=== PATIENT | male | born 1950 | race Caucasian/White ===

== ENCOUNTER → 2017-02-10 | Outpatient (CLI) | payer OTHER ==
[~2017-02-10] VITALS: Ht 182.9 cm; Wt 129.0 kg
[~2017-02-10] MED LIST: ASPI-232 PO; ASPI81TA28 PO; CEFAZOLIN 3000 MG/65 ML D5W IV SCH; CLC100 PO; CLON1TAB21 PO; CLOP1TAB15 PO; CLOP1TAB54 PO; CYM/30 PO; ERGO1CAP35 PO; ERGO500011 PO; ERGO500037 PO; FENO145T26 PO; GABA-113 PO; INSDGI INJ; INSHNI INJ; INSHRIE INJ; INSUINJ8 SC; LACTATED RINGER'S 1000ML 1,000 ML IV SCH; LISI10TA PO; LPR25 PO; LSN5 PO; MAGN400T6 PO; METF-384 PO; METO100T16 PO; MULT-188 PO; NVLGIPEN SC; NVLNI SQ; OMEG10007 PO; POLY335025 PO; POTA20TA16 PO; ROSU20TA PO; RXC5 PO; TAMS0.4C38 PO
[2017-02-10 08:30] VITALS: BMI 38.0
[2017-02-10 09:02] VITALS: BMI 38.0
--- NOTE | 2017-02-10 09:09 | PAT Medication Instructions ---
Service Date Feb 10, 2017. Current Home Medication List Aspirin (Aspir-81), 1 TAB PO QAM Clonazepam (Clonazepam Odt), 1 MG PO HS Clopidogrel (Plavix), 75 MG PO QAM Ergocalciferol (Vitamin D 17529 Unit), 50,000 UNIT PO WK Fenofibrate (Tricor), 145 MG PO QPM Fish Oil ([place]-3), 1 CAP PO BID Gabapentin (Neurontin), 600 MG PO TID Insulin Glargine (Lantus), 55 UNITS INJ AM/PM/HS Insulin Human NPH (Humulin N), 25 UNITS INJ HS Insulin Human Regular (Humulin R), 55 UNITS INJ TIDM Lisinopril (Lisinopril), 5 MG PO QPM Lisinopril (Prinivil), 10 MG PO QAM Magnesium Oxide (Mag-Ox), 400 MG PO QAM Metoprolol & Hydrochlorothiazi (Metoprolol/Hydrochlorothi), 1 TAB PO QAM Multiple Vitamins W/ Minerals (Ocuvite), 1 MG PO QAM Potassium Ext Rel (Klor-Con), 20 MEQ PO BID Rosuvastatin Calcium (Crestor), 20 MG PO QPM Tamsulosin Hcl (Flomax), 0.4 MG PO QAM Medication Instructions For Your Scheduled Surgery - Cpntinue as directed: Ergocalciferol (Vitamin D 24422 Unit), 50,000 UNIT PO WK - Instructions to be given by Cardiology: Clopidogrel (Plavix), 75 MG PO QAM - Hold the following medications 2 weeks prior to surgery: Fish Oil ([place]-3), 1 CAP PO BID - Hold the following medications the morning of surgery: Lisinopril (Prinivil), 10 MG PO QAM Magnesium Oxide (Mag-Ox), 400 MG PO QAM Multiple Vitamins W/ Minerals (Ocuvite), 1 MG PO QAM Potassium Ext Rel (Klor-Con), 20 MEQ PO BID Insulin Human Regular (Humulin R), 55 UNITS INJ TIDM - Take the following medications the morning of surgery with a sip of water OTHERWISE NOTHING TO EAT OR DRINK AFTER MIDNIGHT: Aspirin (Aspir-81), 1 TAB PO QAM Gabapentin (Neurontin), 600 MG PO TID Metoprolol & Hydrochlorothiazi (Metoprolol/Hydrochlorothi), 1 TAB PO QAM Tamsulosin Hcl (Flomax), 0.4 MG PO QAM - Test blood sugar A.M. of surgery. - If Blood Sugar is GREATER THAN 150, take HALF of your regular dose of: Insulin Glargine (Lantus) - If Blood Sugar is LESS THAN 150, DO NOT TAKE ANY: Insulin Glargine ( Lantus) - Take the following medications as scheduled the evening before surgery: Clonazepam (Clonazepam Odt), 1 MG PO HS Gabapentin (Neurontin), 600 MG PO TID Insulin Human NPH (Humulin N), 25 UNITS INJ HS Rosuvastatin Calcium (Crestor), 20 MG PO QPM Potassium Ext Rel (Klor-Con), 20 MEQ PO BID Insulin Glargine (Lantus), 55 UNITS INJ AM/PM/HS Insulin Human Regular (Humulin R), 55 UNITS INJ TIDM - Do not take the following medications the evening before surgery: Fenofibrate (Tricor), 145 MG PO QPM Lisinopril (Lisinopril), 5 MG PO QPM If you have any questions please call us at [phone] or [phone] or [phone]
--- NOTE | 2017-02-10 09:32 | DIAGNOSTIC IMAGING REPORT ---
CHEST PREADMISSION(PA/LAT) HISTORY: Preop. COMPARISON: Chest 08/17/2015. FINDINGS: The lungs are clear. Cardiac silhouette is normal in size. No pleural effusions. No pneumothorax. IMPRESSION: No acute process. Electronically signed by: Ignacio Contreras M.D. 02/10/2017 9:31 AM Dictated Date/Time: 02/10/2017 9:29 AM
[2017-02-16 08:55] VITALS: Ht 182.9 cm; Wt 129.0 kg
--- NOTE | 2017-03-01 07:29 | History & Physical Bridge Note ---
H&P Re-Evaluation Bridge Note: I have examined the patient, reviewed the History & Physical and in the interval since the performance of the History & Physical I have noted the following changes of clinical significance: No changes noted
== END | disposition home or self-care (01) ==
LOC: C.RAD 08:00 → EDSTATUS 03-01 11:15
PROVIDERS: ATTEND Orthopaedic Surgery Orthopaedic Surgery of the Spine
DX: Z01.810 Encounter for preprocedural cardiovascular examination (principal); Z01.811 Encounter for preprocedural respiratory examination; Z01.812 Encounter for preprocedural laboratory examination

== ENCOUNTER 2017-11-02 05:41 | Day surgery (SDC) | payer OTHER ==
[2017-10-11 09:48] VITALS: BMI 37.0
--- NOTE | 2017-10-11 10:19 | PAT Medication Instructions ---
Service Date Oct 11, 2017. Current Home Medication List Aspirin (Aspir-81), 1 TAB PO QAM Clonazepam (Clonazepam Odt), 1 MG PO HS Clopidogrel (Plavix), 75 MG PO QAM Duloxetine HCl (Cymbalta), 1 CAP PO QPM Ergocalciferol (Vitamin D 78515 Unit), 1 TAB PO WK Fenofibrate (Tricor), 145 MG PO QPM Fish Oil ([place]-3), 3 CAP PO BID Gabapentin (Neurontin), 1,200 MG PO BID Insulin Glargine (Lantus), 58-65 UNITS INJ AM/PM/HS Insulin Human NPH (Humulin N), 35 UNITS INJ HS Insulin Human Regular (Humulin R), 57-65 UNITS INJ TIDM Lisinopril (Lisinopril), 5 MG PO QPM Lisinopril (Prinivil), 10 MG PO QAM Magnesium Oxide (Mag-Ox), 400 MG PO QAM Metoprolol & Hydrochlorothiazi (Metoprolol/Hydrochlorothi), 1 TAB PO BID Multiple Vitamins W/ Minerals (Ocuvite), 1 MG PO QAM Potassium Ext Rel (Klor-Con), 20 MEQ PO BID Rosuvastatin Calcium (Crestor), 20 MG PO QPM Tamsulosin Hcl (Flomax), 0.4 MG PO QAM Medication Instructions For Your Scheduled Surgery Ergocalciferol (Vitamin D 28562 Unit), 1 TAB PO WK (continue as directed) - Check with surgeon and facs teacher for instructions: Aspirin (Aspir-81), 1 TAB PO QAM Clopidogrel (Plavix), 75 MG PO QAM - Hold the following medications 2 weeks prior to surgery: Fish Oil ([place]-3), 3 CAP PO BID - Hold the following medications 24 hours prior to surgery: Lisinopril (Lisinopril), 5 MG PO QPM Lisinopril (Prinivil), 10 MG PO QAM Fenofibrate (Tricor), 145 MG PO QPM - Hold the following medications the morning of surgery: Tamsulosin Hcl (Flomax), 0.4 MG PO QAM Potassium Ext Rel (Klor-Con), 20 MEQ PO BID Multiple Vitamins W/ Minerals (Ocuvite), 1 MG PO QAM Magnesium Oxide (Mag-Ox), 400 MG PO QAM Insulin Human Regular (Humulin R), 57-65 UNITS INJ TIDM - Take the following medications the morning of surgery with a sip of water: Metoprolol & Hydrochlorothiazi (Metoprolol/Hydrochlorothi), 1 TAB PO BID Gabapentin (Neurontin), 1,200 MG PO BID - Take the following medications as scheduled the night before surgery: Rosuvastatin Calcium (Crestor), 20 MG PO QPM Potassium Ext Rel (Klor-Con), 20 MEQ PO BID Gabapentin (Neurontin), 1,200 MG PO BID Insulin Human NPH (Humulin N), 35 UNITS INJ HS Insulin Human Regular (Humulin R), 57-65 UNITS INJ TIDM Duloxetine HCl (Cymbalta), 1 CAP PO QPM Clonazepam (Clonazepam Odt), 1 MG PO HS - For Insulin Dependent Diabetic patients: Test blood sugar A.M. of surgery. - If blood sugar greater than 150, take half of your regular dose of: Insulin Glargine (Lantus), take 29 units - If blood sugar less than 150, do not take any: Insulin Glargine (Lantus ) If you have any questions please call us at [phone] or [phone] or [phone]
[2017-10-11 10:37] LABS: BASO % 0.6 %; BASO ABS # 0.04 K/uL (0-0.2); COMPLETE YES; EOS % 1.8 %; HEMATOCRIT 42.6 % (42-52); IG% 0.7 %; LYMPH ABS # 1.66 K/uL (1.2-3.4); MEAN CELL VOLUME 95.7 fL (80-100); MEAN CORPUSCULAR HEMOGLOBIN 32.1 pg (25-34); MEAN CORPUSCULAR HGB CONC 33.6 g/dl (32-36); MEAN PLATELET VOLUME 10.4 fL (7.4-10.4); NEUT % 63.9 %; PLATELET COUNT 165 K/uL (130-400); RED BLOOD COUNT 4.45 M/uL (4.7-6.1); WHITE BLOOD COUNT 7.22 K/uL (4.8-10.8)
[2017-10-11 10:40] LABS: URINE APPEARANCE CLEAR (CLEAR); URINE BILIRUBIN NEG (NEG); URINE COLOR YELLOW; URINE NITRITE NEG (NEG); URINE PH 5.5 (4.5-7.5); URINE SPECIFIC GRAVITY 1.019 (1.000-1.030); UROBILINOGEN NEG (NEG); ZZUR CULT IF INDIC CLEAN CATCH NO
[2017-10-11 10:48] LABS: MANUAL MICROSCOPIC REQUIRED? NO; REVIEW REQ? NO
--- NOTE | 2017-10-11 10:52 | DIAGNOSTIC IMAGING REPORT ---
CHEST PREADMISSION(PA/LAT) HISTORY: Preop. COMPARISON: Chest 02/10/2017. FINDINGS: The lungs are clear. Cardiac silhouette is normal in size. No pleural effusions. No pneumothorax. Lumbar spinal fusion hardware is partially visualized. IMPRESSION: No acute process. Electronically signed by: Ignacio Contreras M.D. 10/11/2017 10:51 AM Dictated Date/Time: 10/11/2017 10:50 AM
[2017-10-11 11:08] LABS: BUN/CREATININE RATIO 15.3 (10-20); CALCIUM 9.3 mg/dl (8.5-10.1); CREATININE 2.06 mg/dl (0.60-1.40); POTASSIUM 4.7 mmol/L (3.5-5.1)
[~2017-11-02] VITALS: Ht 188 cm; Wt 131.5 kg
[~2017-11-02 05:41] MED LIST changes: -ASPI81TA28 PO; -CEFAZOLIN 3000 MG/65 ML D5W IV SCH; -CLC100 PO; -CLOP1TAB54 PO; -ERGO1CAP35 PO; -ERGO500037 PO; -INSUINJ8 SC; -LACTATED RINGER'S 1000ML 1,000 ML IV SCH; -LPR25 PO; -METF-384 PO; -NVLGIPEN SC; -NVLNI SQ; -POLY335025 PO; -RXC5 PO
[2017-11-02] MEDS ORDERED: CEFAZOLIN 3000MG IV PUSH 15 ML IV SCH (06:00)
[2017-11-02] MEDS ORDERED: LACTATED RINGER'S 1000ML 1,000 ML IV SCH (06:00)
[2017-11-02 06:36] VITALS: BP 137/64; PULSE 52; TEMP 36.6; O2SAT 95; Ht 188 cm; Wt 131.5 kg
[2017-11-02] MEDS ORDERED: FENTANYL CITRATE INJ 50 MCG/1 ML 2 ML VIAL ONE ×2 (06:36→07:47)
[2017-11-02] MEDS ORDERED: MIDAZOLAM HCL 1 MG/ML 2ML VIAL ONE (06:36)
[2017-11-02] MEDS ORDERED: BACITRACIN 50000 UNIT VIAL ONE (07:05)
[2017-11-02] MEDS ORDERED: BUPIVACAINE/EPINEPHRINE 0.5% MPF 1:200,000 30 ML VIAL ONE (07:05)
[2017-11-02] MEDS ORDERED: HYDROmorphone INJ 1 MG/ML SYR IV PRN ×2 (07:30→08:45)
[2017-11-02] MEDS ORDERED: ATROPINE SULFATE 0.1 MG/ML 5ML SYR IV PRN (07:30)
[2017-11-02] MEDS ORDERED: EpHEDrine SULFATE INJ 50 MG/ML AMP IV PRN (07:30)
[2017-11-02] MEDS ORDERED: PHENYLEPHRINE 100MCG/ML 5ML SYR IV PRN (07:30)
[2017-11-02] MEDS ORDERED: LABETALOL HCL IV 5 MG/ML 20ML IV PRN (07:30)
[2017-11-02] MEDS ORDERED: FENTANYL CITRATE INJ 50 MCG/1 ML 2 ML VIAL IV PRN (07:30)
[2017-11-02] MEDS ORDERED: ONDANSETRON INJ 2 MG/ML 2 ML VIAL IV PRN (07:30)
--- NOTE | 2017-11-02 07:33 | History and Physical ---
History & Physical Date Nov 02, 2017. Chief Complaint Chronic back and leg pain History of Present Illness The patient is a 67 year old male with complaints of chronic back and leg pain Additional History Hepatic Disease: No Endocrine Disorder: No Kidney Disease: No Hypertension: Yes Heart Disease: No Bleeding Tendencies: No Infectious Diseases: No Allergies Coded Allergies: No Known Allergies (Unverified , 11/02/17) Home Medications Scheduled Aspirin (Aspir-81), 1 TAB PO QAM Clonazepam (Clonazepam Odt), 1 MG PO HS Clopidogrel (Plavix), 75 MG PO QAM Duloxetine HCl (Cymbalta), 1 CAP PO QPM Ergocalciferol (Vitamin D 47174 Unit), 1 TAB PO WK Fenofibrate (Tricor), 145 MG PO QPM Fish Oil ([place]-3), 3 CAP PO BID Gabapentin (Neurontin), 600 MG PO BID Insulin Glargine (Lantus), 58-65 UNITS INJ AM/PM/HS Insulin Human NPH (Humulin N), 35 UNITS INJ HS Insulin Human Regular (Humulin R), 57-65 UNITS INJ TIDM Lisinopril (Lisinopril), 5 MG PO QPM Lisinopril (Prinivil), 10 MG PO QAM Magnesium Oxide (Mag-Ox), 400 MG PO QAM Metoprolol & Hydrochlorothiazi (Metoprolol/Hydrochlorothi), 1 TAB PO BID Multiple Vitamins W/ Minerals (Ocuvite), 1 MG PO QAM Potassium Ext Rel (Klor-Con), 20 MEQ PO BID Rosuvastatin Calcium (Crestor), 20 MG PO QPM Tamsulosin Hcl (Flomax), 0.4 MG PO QAM Physical Examination Skin: warm/dry, no rash Eyes: normal inspection, EOMI, sclerae normal ENT: normal ENT inspection, pharynx normal Head: normocephalic, atraumatic Neck: supple, no adenopathy, trachea midline Respiratory/Chest: lungs clear, normal breath sounds, no respiratory distress Cardiovascular: regular rate, rhythm, no edema, no murmur Abdomen / GI: normal bowel sounds, non tender Back: normal inspection Extremities: normal inspection, normal range of motion Neurologic/Psych: no motor/sensory deficits, alert, normal reflexes, oriented x 3 Diagnosis Chronic back and leg pain Plan of Treatment Spinal cord stimulator trial
[2017-11-02] MEDS ORDERED: HYDROmorphone INJ 2 MG/ML SYR/VIAL ONE (08:19)
[2017-11-02] MEDS ORDERED: EpHEDrine SULFATE 50MG/5ML SYR ONE (08:22)
[2017-11-02] MEDS ORDERED: NEOSTIGMINE METHYLSULFATE 1 MG/ML 10ML VIAL ONE (08:22)
[2017-11-02] MEDS ORDERED: GLYCOPYRROLATE INJ 0.2 MG/ML VIAL ONE (08:22)
[2017-11-02] MEDS ORDERED: ROCURONIUM BROMIDE 10 MG/ML 5 ML VIAL IV ONE (08:22)
[2017-11-02] MEDS ORDERED: PROPOFOL IV EMULSION 10 MG/ML 20 ML VIAL IV ONE (08:22)
[2017-11-02] MEDS ORDERED: DEXAMETHASONE SOD INJ 4 MG/ML VIAL ONE (08:22)
[2017-11-02] MEDS ORDERED: ONDANSETRON INJ 2 MG/ML 2 ML VIAL ONE (08:22)
[2017-11-02] MEDS ORDERED: LIDOCAINE HCL 2% 2 ML VIAL (20MG/ML) ONE (08:22)
--- NOTE | 2017-11-02 08:44 | DIAGNOSTIC IMAGING REPORT ---
SPINE ONE VIEW, ANY LEVEL HISTORY: 67 years-old Male SPINAL CORD STIM TRIAL placement of a spinal cord stimulator device COMPARISON: Chest radiograph 10/11/2017 TECHNIQUE: Single spot fluoroscopic image of the thoracic spine was obtained utilizing 5.4 seconds fluoroscopy time FINDINGS: There are 2 electrodes suggesting spinal stimulator leads which overlie the central spine at what appears to be the T9-T11 levels with distal tips at the level of T9. Confirmation of placement could be confirmed with dedicated thoracic spine radiographs. IMPRESSION: Fluoroscopic assistance with placement of spinal stimulator leads as above. The above report was generated using voice recognition software. It may contain grammatical, syntax or spelling errors. Electronically signed by: Dm Santana M.D. 11/02/2017 8:42 AM Dictated Date/Time: 11/02/2017 8:41 AM
[2017-11-02] MEDS ORDERED: KETOROLAC TROMETHAMINE 15 MG/ML VIAL IV. PRN (08:45)
[2017-11-02] MEDS ORDERED: OXYC-57 PO (08:45)
[2017-11-02] MEDS ORDERED: CEPH500C2 PO (08:45)
[2017-11-02] MEDS ORDERED: OXYCODONE HCL IR 5 MG TAB (IMMEDIATE RELEASE) PO PRN (08:45)
[2017-11-02] MEDS ORDERED: ACETAMINOPHEN 325 MG TAB PO PRN (08:45)
--- NOTE | 2017-11-02 08:46 | Discharge Instructions ---
Discharge Instructions Date of Service Nov 02, 2017. Admission Reason for Admission: Lumbar Post-Laminectomy Syndrome Discharge Discharge Diagnosis / Problem: chronic back and leg pain Discharge Goals Goal(s): Improve function Activity Recommendations Activity Limitations: per Instructions/Follow-up section . Instructions / Follow-Up Instructions / Follow-Up ACTIVITY RECOMMENDATIONS: SELF CARE INSTRUCTIONS AFTER A LAMINECTOMY 1. No prolonged sitting (less than 30 minutes for the first 3 weeks after surgery). 2. No bending, lifting more than 5 pounds, or twisting (roll like a log when turning in bed). 3. You may shower 3 days after surgery if no drainage from wound. Thoroughly dry wound. Do not soak in the tub. 4. Please walk as much as you can for exercise. Gradually increase the distance that you walk as your endurance increases. 5. You may drive in 7-10 days if you are comfortable and no longer requiring pain medications. SPECIAL CARE INSTRUCTIONS: VERY IMPORTANT TO READ AND REVIEW A. Your surgical incision has been closed with a cosmetic suture under the skin that will dissolve in about 6 weeks. In 14 days, you can use a pair of clean scissors and cut the suture that is left outside of the skin at the ends of your incision. B. Complications are uncommon, but please contact us if you have any signs or symptoms of: 1. wound infection (fever higher than 102.5 degrees F, redness, separation of wound, drainage, or increasing pain from the incision) 2. blood clots in legs (pain, swelling, redness and warmth in legs) 3. urinary tract infection (fever higher than 102.5 degrees, burning upon urination or increased frequency of urination) 4. nerve problems (inability to walk on your toes or heels, numbness, loss of bowel or bladder control) 5. any other symptoms that concern you. C. Please call the office at if you have any concerns or questions about your operation or recovery. MANAGING PAIN AFTER SPINAL SURGERY 1. Narcotic medication is intended for short-term use and will be provided for surgical pain. Surgical pain usually lasts for a period of 4-6 weeks. Narcotic medication includes Percocet, Vicodin, Darvocet, Tylenol #3 or Lortab. 2. Longer-term pain is more appropriately treated with non-narcotic medication such as Tylenol ES. 3. Muscle spasm is not appropriately treated with narcotics. Muscle relaxers such as Soma, Flexeril or Skelaxin can be used along with Tylenol ES. 4. Remember that we all live with some "aches and pains". This is not unusual or uncommon after an injury or as we get older. 5. We will provide appropriate medication within the normal guidelines of their prescribed use. We will also be very cautious and aware of potential abuse and extended duration of patients' medication needs. 6. Please allow 2-3 days to process refills. Prescriptions will not be mailed but must be picked up at the office. FOLLOW UP VISIT: Keep your scheduled follow-up appointment. Any questions, please call the office at . Current Hospital Diet Patient's current hospital diet: Discharge Diet Recommended Diet: Regular Diet Procedures Procedures Performed: Spinal Cord Stimulator Trial Pending Studies Studies pending at discharge: no Medical Emergencies . Who to Call and When: Medical Emergencies: If at any time you feel your situation is an emergency, please call 911 immediately. . Non-Emergent Contact Non-Emergency issues call your: Primary Care Provider . "Provider Documentation" section prepared by Leonel Rae. . VTE Core Measure Inpt VTE Proph given/why not?: Chadwick Valentin, SCD's
--- NOTE | 2017-11-02 08:50 | [facility] Operative Report ---
Operative Report Operative Date Nov 02, 2017. Pre-Operative Diagnosis Chronic back and leg pain Post-Operative Diagnosis Same Procedure(s) Performed #1 T10 laminotomy. #2 placement of 16-lead dorsal column stimulator paddle with external leads. Surgeon Dr. Rae Hay Farmer Surgeon(s) none Estimated Blood Loss 30 ML Findings None Specimens none per surgeon Description of Procedure Patient was met with preoperatively case discussed all questions addressed. After informed consent was obtained patient was taken to the operative suite and intubated and placed in a prone position the Ayush table on top Vasile frame. All bony prominences well-padded eyes inspected to ensure no external pressure placed upon them. This point the thoracal lumbar spines prepped and draped nostril fashion. With the assistance of fluoroscopy identified the T10- T11 disc space. Midline incision was created overlying this region. Sharp dissection with the assistance of Bovie cautery was performed onto an exposing the interlaminar space at T10-T11. Then performed a midline laminotomy at T10 to enough to place the paddle. The paddle was placed verified position with fluoroscopy. It was then sewn in position. Attached external leads. A trocar was used to place leads externally to the left. Incisions were irrigated closed the subcutaneous Vicryl and Monocryl for final skin closure. Sterile dressing was placed. Patient we can take PACU stable condition. I attest to the content of the Intraoperative Record and any orders documented therein. Any exceptions are noted below.
--- NOTE | 2017-11-02 09:22 | Anesthesiology Progress Note ---
Anesthesia Post Op Note Date & Time Nov 02, 2017 at 09:22 Vital Signs Pain Intensity: 0 Vital Signs Past 12 Hours Date Time Temp Pulse Resp B/P (MAP) Pulse Ox O2 Delivery O2 Flow Rate FiO2 11/02/17 09:14 65 23 11/02/17 09:14 65 23 90 11/02/17 09:13 143/74 11/02/17 09:10 67 24 143/74 92 Oxymask 15 11/02/17 09:09 66 23 11/02/17 09:09 65 23 94 11/02/17 09:06 139/78 11/02/17 09:04 61 21 11/02/17 09:04 62 21 94 11/02/17 09:01 133/78 11/02/17 09:00 66 22 133/78 93 Oxymask 15 11/02/17 08:59 68 23 11/02/17 08:59 67 23 93 11/02/17 08:56 147/69 11/02/17 08:55 159/79 11/02/17 08:54 65 20 11/02/17 08:54 36.1 66 16 159/79 92 Oxymask 15 11/02/17 08:54 65 20 92 11/02/17 06:36 36.6 52 22 137/64 (88) 95 Room Air Notes Mental Status: alert / awake / arousable, participated in evaluation Pt Amnestic to Procedure: Yes Nausea / Vomiting: adequately controlled Pain: adequately controlled Airway Patency, RR, SpO2: stable & adequate BP & HR: stable & adequate Hydration State: stable & adequate Anesthetic Complications: no major complications apparent Doing well. No complaints. VSS. Ready for d/c from PACU
[2017-11-02 10:40] VITALS: BP 121/71; PULSE 65; TEMP 36.6; O2SAT 95
== END 2017-11-02 10:55 | disposition home or self-care (01) ==
LOC: C.ACU 05:41
PROVIDERS: ATTEND Orthopaedic Surgery Orthopaedic Surgery of the Spine
DX: G89.29 Other chronic pain (principal); M54.14 Radiculopathy, thoracic region; Z79.02 Long term (current) use of antithrombotics/antiplatelets; Z79.82 Long term (current) use of aspirin; Z79.4 Long term (current) use of insulin; Z79.899 Other long term (current) drug therapy

== ENCOUNTER 2017-12-01 07:47 | Day surgery (SDC) | payer OTHER ==
[2017-11-17 10:05] VITALS: BMI 37.0
[2017-11-29 10:31] VITALS: BMI 37.0
[~2017-12-01] VITALS: Ht 188 cm; Wt 131.5 kg
[~2017-12-01 07:47] MED LIST changes: +CEFAZOLIN 1000MG IV PUSH 5 ML IV SCH; +CEFAZOLIN 3000MG IV PUSH 15 ML IV SCH; -CLOP1TAB15 PO; +SODIUM CHLORIDE 0.9% 1000ML 1,000 ML IV SCH; +SODIUM CHLORIDE 0.9% 1000ML IV SCH
[2017-12-01 08:17] VITALS: BP 119/57; PULSE 81; TEMP 37.1; O2SAT 96; Ht 188 cm; Wt 131.5 kg
[2017-12-01] MEDS ORDERED: EpHEDrine SULFATE INJ 50 MG/ML AMP IV PRN (09:00)
[2017-12-01] MEDS ORDERED: ATROPINE SULFATE 0.1 MG/ML 5ML SYR IV PRN (09:00)
[2017-12-01] MEDS ORDERED: ONDANSETRON INJ 2 MG/ML 2 ML VIAL IV PRN (09:00)
[2017-12-01] MEDS ORDERED: FENTANYL CITRATE INJ 50 MCG/1 ML 2 ML VIAL IV PRN (09:00)
[2017-12-01] MEDS ORDERED: DEXAMETHASONE SOD INJ 4 MG/ML VIAL ONE (09:01)
[2017-12-01] MEDS ORDERED: NEOSTIGMINE METHYLSULFATE 1 MG/ML 10ML VIAL ONE (09:01)
[2017-12-01] MEDS ORDERED: GLYCOPYRROLATE INJ 0.2 MG/ML VIAL ONE (09:01)
[2017-12-01] MEDS ORDERED: FENTANYL CITRATE INJ 50 MCG/1 ML 2 ML VIAL ONE (09:01)
[2017-12-01] MEDS ORDERED: ONDANSETRON INJ 2 MG/ML 2 ML VIAL ONE (09:01)
[2017-12-01] MEDS ORDERED: PROPOFOL IV EMULSION 10 MG/ML 20 ML VIAL IV ONE (09:01)
[2017-12-01] MEDS ORDERED: MIDAZOLAM HCL 1 MG/ML 2ML VIAL ONE (09:01)
[2017-12-01] MEDS ORDERED: LIDOCAINE HCL 2% 2 ML VIAL (20MG/ML) ONE (09:01)
--- NOTE | 2017-12-01 09:09 | History and Physical ---
History & Physical Date Dec 01, 2017. Chief Complaint Chronic back and leg pain History of Present Illness The patient is a 67 year old male with complaints of back and leg pain Allergies Coded Allergies: No Known Allergies (Unverified , 12/01/17) Home Medications Scheduled Aspirin (Aspir-81), 1 TAB PO QAM Clonazepam (Clonazepam Odt), 1 MG PO HS Duloxetine HCl (Cymbalta), 1 CAP PO QPM Ergocalciferol (Vitamin D 03453 Unit), 1 TAB PO WK Fenofibrate (Tricor), 145 MG PO QPM Fish Oil ([place]-3), 3 CAP PO BID Gabapentin (Neurontin), 600 MG PO BID Insulin Glargine (Lantus), 58-65 UNITS INJ AM/PM/HS Insulin Human NPH (Humulin N), 35 UNITS INJ HS Insulin Human Regular (Humulin R), 57-65 UNITS INJ TIDM Lisinopril (Lisinopril), 5 MG PO QPM Lisinopril (Prinivil), 10 MG PO QAM Magnesium Oxide (Mag-Ox), 400 MG PO QAM Metoprolol & Hydrochlorothiazi (Metoprolol/Hydrochlorothi), 1 TAB PO BID Multiple Vitamins W/ Minerals (Ocuvite), 1 MG PO QAM Potassium Ext Rel (Klor-Con), 20 MEQ PO BID Rosuvastatin Calcium (Crestor), 20 MG PO QPM Tamsulosin Hcl (Flomax), 0.4 MG PO QAM Diagnosis Failed laminectomy syndrome Plan of Treatment Removal of implanted trial with spinal cord stimulator placement
[2017-12-01] MEDS ORDERED: BACITRACIN 50000 UNIT VIAL ONE (09:27)
[2017-12-01] MEDS ORDERED: BUPIVACAINE/EPINEPHRINE 0.25% 1:200,000 30 ML VIAL ONE (09:27)
[2017-12-01] MEDS ORDERED: EpHEDrine SULFATE 50MG/5ML SYR ONE (10:10)
[2017-12-01] MEDS ORDERED: ROCURONIUM BROMIDE 10 MG/ML 5 ML VIAL IV ONE (10:10)
[2017-12-01] MEDS ORDERED: FLOSEAL HEMOSTATIC MATRIX 5ML TOP ONE (10:11)
--- NOTE | 2017-12-01 10:21 | [facility] Operative Report ---
Operative Report Operative Date Dec 01, 2017. Pre-Operative Diagnosis Failed laminectomy syndrome Post-Operative Diagnosis Failed laminectomy syndrome Procedure(s) Performed #1 removal of temporary spinal cord stimulator leads. #2 implantation of spinal cord stimulator battery. Surgeon Dr. Johnnie Rae Gas Analyst Surgeon(s) Monica Heck PA-C Findings Expected with procedure Specimens none per surgeon Description of Procedure Patient was met with preoperatively case discussed all questions addressed. After informed consent obtained patient was taken to the operative suite underwent intubation placed in a prone position on the Ayush table on top Vasile frame. The thoracal lumbar spine was then prepped and draped in the normal sterile fashion. Utilizing the previous laminotomy site sharp dissection was performed onto an exposing the T10 laminotomy and the temporary leads. These were subsequently detached and removed. Then created a pocket over the right flank. Using a trocar we passed the leads to the pocket attached the battery and tested for efficacy. Once this was determined to be functional the battery was placed in the pocket incisions copiously irrigated and closed with subcutaneous Vicryl and 4 Monocryl for final skin closure. Steri-Strips sterile dressings placed. Patient we can taken to PACU stable condition. Please note Samantha Banuelos was present throughout the entire procedure involved in patient positioning complex portions of the surgery and final skin closure. I attest to the content of the Intraoperative Record and any orders documented therein. Any exceptions are noted below.
[2017-12-01] MEDS ORDERED: [UNRECOGNIZED DRUG - CODE] PO (10:25)
--- NOTE | 2017-12-01 10:26 | Discharge Instructions ---
Discharge Instructions Date of Service Dec 01, 2017. Admission Reason for Admission: Lumbar Post-Laminectomy Syndrome Discharge Discharge Diagnosis / Problem: back pain Discharge Goals Goal(s): Decrease discomfort, Improve function Activity Recommendations Activity Limitations: per Instructions/Follow-up section . Instructions / Follow-Up Instructions / Follow-Up ACTIVITY RECOMMENDATIONS: SELF CARE INSTRUCTIONS AFTER A LAMINECTOMY 1. No prolonged sitting (less than 30 minutes for the first 3 weeks after surgery). 2. No bending, lifting more than 5 pounds, or twisting (roll like a log when turning in bed). 3. You may shower 3 days after surgery if no drainage from wound. Thoroughly dry wound. Do not soak in the tub. 4. Please walk as much as you can for exercise. Gradually increase the distance that you walk as your endurance increases. 5. You may drive in 7-10 days if you are comfortable and no longer requiring pain medications. SPECIAL CARE INSTRUCTIONS: VERY IMPORTANT TO READ AND REVIEW A. Your surgical incision has been closed with a cosmetic suture under the skin that will dissolve in about 6 weeks. In 14 days, you can use a pair of clean scissors and cut the suture that is left outside of the skin at the ends of your incision. B. Complications are uncommon, but please contact us if you have any signs or symptoms of: 1. wound infection (fever higher than 102.5 degrees F, redness, separation of wound, drainage, or increasing pain from the incision) 2. blood clots in legs (pain, swelling, redness and warmth in legs) 3. urinary tract infection (fever higher than 102.5 degrees, burning upon urination or increased frequency of urination) 4. nerve problems (inability to walk on your toes or heels, numbness, loss of bowel or bladder control) 5. any other symptoms that concern you. C. Please call the office at if you have any concerns or questions about your operation or recovery. MANAGING PAIN AFTER SPINAL SURGERY 1. Narcotic medication is intended for short-term use and will be provided for surgical pain. Surgical pain usually lasts for a period of 4-6 weeks. Narcotic medication includes Percocet, Vicodin, Darvocet, Tylenol #3 or Lortab. 2. Longer-term pain is more appropriately treated with non-narcotic medication such as Tylenol ES. 3. Muscle spasm is not appropriately treated with narcotics. Muscle relaxers such as Soma, Flexeril or Skelaxin can be used along with Tylenol ES. 4. Remember that we all live with some "aches and pains". This is not unusual or uncommon after an injury or as we get older. 5. We will provide appropriate medication within the normal guidelines of their prescribed use. We will also be very cautious and aware of potential abuse and extended duration of patients' medication needs. 6. Please allow 2-3 days to process refills. Prescriptions will not be mailed but must be picked up at the office. FOLLOW UP VISIT: Keep your scheduled follow-up appointment. Any questions, please call the office at . Current Hospital Diet Patient's current hospital diet: Discharge Diet Recommended Diet: Regular Diet Procedures Procedures Performed: #1 removal of temporary spinal cord stimulator leads. #2 implantation of spinal cord stimulator battery. Pending Studies Studies pending at discharge: no Medical Emergencies . Who to Call and When: Medical Emergencies: If at any time you feel your situation is an emergency, please call 911 immediately. . Non-Emergent Contact Non-Emergency issues call your: Primary Care Provider . "Provider Documentation" section prepared by Leonel Rae. . VTE Core Measure Inpt VTE Proph given/why not?: Chadwick Valentin, SCD's
[2017-12-01] MEDS ORDERED: OXYCODONE/ACETAMINOPHEN 5-325 TAB PO PRN (10:30)
[2017-12-01] MEDS ORDERED: HYDROmorphone INJ 1 MG/ML SYR IV PRN (10:30)
[2017-12-01] MEDS ORDERED: ACETAMINOPHEN 325 MG TAB PO PRN (10:30)
--- NOTE | 2017-12-01 11:52 | Anesthesiology Progress Note ---
Anesthesia Post Op Note Date & Time Dec 01, 2017 at 11:52 Vital Signs Pain Intensity: 0 Vital Signs Past 12 Hours Date Time Temp Pulse Resp B/P (MAP) Pulse Ox O2 Delivery O2 Flow Rate FiO2 12/01/17 11:23 37.2 73 18 119/60 98 Room Air 12/01/17 11:16 100/62 12/01/17 11:15 36.8 75 16 93/56 98 Room Air 12/01/17 11:05 72 16 93/56 98 Room Air 2 12/01/17 10:55 73 16 94/47 97 Oxymask 10 12/01/17 10:46 76 16 101/50 97 Oxymask 10 12/01/17 10:37 37.1 100 16 133/71 97 Oxymask 10 12/01/17 08:17 37.1 81 20 119/57 (77) 96 Room Air Notes Mental Status: alert / awake / arousable, participated in evaluation Pt Amnestic to Procedure: Yes Nausea / Vomiting: adequately controlled Pain: adequately controlled Airway Patency, RR, SpO2: stable & adequate BP & HR: stable & adequate Hydration State: stable & adequate Anesthetic Complications: no major complications apparent
[2017-12-01 11:53] VITALS: BP 126/63; PULSE 67; TEMP 36.7; O2SAT 95
== END 2017-12-01 12:08 | disposition home or self-care (01) ==
LOC: C.ACU 07:47
PROVIDERS: ATTEND Orthopaedic Surgery Orthopaedic Surgery of the Spine
DX: M96.1 Postlaminectomy syndrome, not elsewhere classified (principal); E66.01 Morbid (severe) obesity due to excess calories; G47.33 Obstructive sleep apnea (adult) (pediatric); I25.10 Atherosclerotic heart disease of native coronary artery without angina pectoris; I10 Essential (primary) hypertension; I27.20 Pulmonary hypertension, unspecified; Z79.82 Long term (current) use of aspirin; Z79.4 Long term (current) use of insulin